=== PATIENT | male | born 1985 | race Caucasian/White ===

== ENCOUNTER 2019-11-17 05:18 | Emergency (ER) | payer MEDICAID ==
[~2019-11-17] VITALS: Ht 165.1 cm; Wt 83.9 kg
[2019-11-17 05:22] VITALS: BP 156/108
--- NOTE | 2019-11-17 05:23 | NUR ---
pt taken to er bed # 7 via w/c
--- NOTE | 2019-11-17 05:28 | NUR ---
34 Y/O MALE PRESENTED TO ED C/O LEFT ANKLE PAIN X 11 HRS. PT STATES HE WAS PLAYING BASKETBALL LAST NIGHT AROUND 1800 AND LANDED WRONG ON HIS LEFT ANKLE. PT STATES HE HAS BEEN UNABLE TO AMBULATE ON ANKLE SINCE INJURY. OBSERVED SWELLING ON LEFT ANKLE. + PEDAL PULSES . PT DENIES NUMBNESS AND TINGLING IN FEET AND TOES. PT CAP REFIL < 3 SEC. PT STATES HE TOOK A NORCO AT 2000 LAST NIGHT W/ RELIEF BUT THE MEDICATION HAS NOW WORN OFF. PT RESTING IN BED , LOCKED AND IN LOWEST POSITION, HOB ELEVATED, SIDE RAIL X1 . PT RR EVEN AND UNLABORED, VSS. NO DISTRESS NOTED AT THIS TIME. PMH: APPENDECTOMY NKA
--- NOTE | 2019-11-17 05:30 | NUR ---
DR. LAKHANI AT BEDSIDE FOR PT MEDICAL EVALUATION.
--- NOTE | 2019-11-17 05:37 | NUR ---
XRAY AT BEDSIDE.
[2019-11-17] MEDS ORDERED: KETOROLAC 30 MG/ML VIAL IM ONE (05:40)
--- NOTE | 2019-11-17 06:15 | NUR ---
pt resting in bed, locked and in lowest position, hob elevated, side rail x2. pt states pain is better after shot , still currently rated 6/10.
--- NOTE | 2019-11-17 06:30 | NUR ---
called xray for eta on xray report - per cardiac cath tech they will put a call into radiologist
--- NOTE | 2019-11-17 06:47 | NUR ---
dr. anne at bedside for re-evaluation.
[2019-11-17 06:55] VITALS: BP 156/108
--- NOTE | 2019-11-17 06:55 | NUR ---
Patient discharged with v/s stable. Written and verbal after care instructions given and explained. Patient alert, oriented and verbalized understanding of instructions. Ambulatory with steady gait on crutches. All questions addressed prior to discharge. ID band removed. Patient advised to follow up with PMD. Rx Naprosyn of given. Patient educated on indication of medication including possible reaction and side effects. Opportunity to ask questions provided and answered.
--- NOTE | 2019-11-17 06:57 | NUR ---
WRAP PT'S LEFT ANKLE WITH 3" FLORENCIO WRAP, CHECKED PMSC'S BEFORE AND AFTER WITHOUT INCIDENT. PROVIDED PT WITH CRUTCHES AND GAVE ONE ON ONE INSTRUCTIONS WITHOUT INCIDENT.
== END 2019-11-17 06:55 | disposition home or self-care (01) ==
LOC: MED 05:18
DX: S93.402A Sprain of unspecified ligament of left ankle, initial encounter (principal); X50.1XXA Overexertion from prolonged static or awkward postures, initial encounter; Y93.67 Activity, basketball; Y92.89 Other specified places as the place of occurrence of the external cause; Y99.8 Other external cause status
CPT/HCPCS: 73610; 96372; 99283; J1885; Q0092